=== PATIENT | female | born 1945 | race Caucasian/White ===

== ENCOUNTER → 2016-10-26 | Outpatient (CLI) | payer OTHER ==
[2016-10-26 11:08] LABS: HEMATOCRIT 43.7 % (37.0-47.0); HEMOGLOBIN 14.3 g/dL (12.0-16.0); MEAN CORPUSCULAR HEMOGLOBIN 31.1 PG (27-31); MEAN CORPUSCULAR HGB CONC 32.7 g/dL (33-37); MEAN PLATELET VOLUME 10.8 FL (7.4-12.2); RDW COEFFICIENT OF VARIATION 12.9 % (11.5-14.5); RED BLOOD COUNT 4.6 10^6/uL (4.20-5.40); WHITE BLOOD COUNT 6.21 10^3/uL (4.8-10.8)
[2016-10-26 11:43] LABS: BLOOD UREA NITROGEN 15 mg/dL (7-22); CALCIUM 9.5 mg/dL (8.7-10.7); CHLORIDE 103 meq/L (98-112); CREATININE 0.6 mg/dL (0.50-1.20); EST GLOMERULAR FILTRATION > 60 (>60 ml/min/1.73m(2)); GLUCOSE 83 mg/dL (78-110); HDL CHOLESTEROL 60 mg/dL (40-150); POTASSIUM 3.7 meq/L (3.8-5.2); SODIUM 143 meq/L (135-145); TRIGLYCERIDES 131 mg/dL (44-200)
[2016-10-27 21:20] LABS: RHEUMATOID FACTOR <15 IU/mL (<15)
[2016-10-27 21:21] LABS: ANTINUCLEAR ANTIBODY 2.6 U (()); CYCLIC CITRULLINATED PEPTIDEAB <15.6 U (())
== END ==
LOC: LAB 10:44
PROVIDERS: ATTEND Obstetrics & Gynecology Gynecology
DX: M06.89 Other specified rheumatoid arthritis, multiple sites (principal)
CPT/HCPCS: 80048; 80061; 85027; 85652; 86038; 86200; 86431

== ENCOUNTER → 2016-11-11 | Outpatient (CLI) | payer OTHER ==
[2016-11-11 13:41] LABS: BASOPHILS # (AUTO) 0.04 10*3/UL; BASOPHILS % (AUTO) 0.5 % (0-1); EOSINOPHILS % (AUTO) 0.6 % (0-8); HEMATOCRIT 42.1 % (37.0-47.0); HEMOGLOBIN 13.9 g/dL (12.0-16.0); IMM GRAN % (AUTO) 0.2 % (0-5); IMM GRAN# (AUTO) 0.02 10*3/UL; LYMPHOCYTES # (AUTO) 1.65 10*3/uL; LYMPHOCYTES % (AUTO) 19.9 % (10-50); MEAN PLATELET VOLUME 10.5 FL (7.4-12.2); MONOCYTES # (AUTO) 0.44 10*3/UL (0.3-0.8); MONOCYTES % (AUTO) 5.3 % (5-15); NEUTROPHILS % (AUTO) 73.5 % (50-80); RDW COEFFICIENT OF VARIATION 13.2 % (11.5-14.5); RED BLOOD COUNT 4.35 10^6/uL (4.20-5.40)
[2016-11-11 13:44] LABS: BILIRUBIN,URINE NEGATIVE (NEG); CLARITY,URINE CLEAR (CLEAR); GLUCOSE, URINE (UA) NEGATIVE (NEG); LEUKOCYTE ESTERASE ,URINE NEGATIVE (NEG); NITRATE,URINE NEGATIVE (NEG); OCCULT BLOOD,URINE NEGATIVE (NEG); PH,URINE 5.5 (5.0-8.5); PROTEIN,URINE NEGATIVE (NEG); UROBILINOGEN,URINE 0.2 EU/dL (0.2)
[2016-11-11 13:47] LABS: PLATELET MORPHOLOGY COMMENT NORMAL MORPHOLOGY (NORM); URINE SAMPLE TYPE CLEAN CATCH URINE
[2016-11-11 14:06] LABS: ASPARTATE AMINO TRANSFERASE 28 IU/L (8-39); BILIRUBIN,TOTAL 0.7 mg/dL (0.3-1.2); BLOOD UREA NITROGEN 20 mg/dL (7-22); CALCIUM 9.7 mg/dL (8.7-10.7); CHLORIDE 104 meq/L (98-112); CREATININE 0.8 mg/dL (0.50-1.20); EST GLOMERULAR FILTRATION > 60 (>60 ml/min/1.73m(2)); GLUCOSE 138 mg/dL (78-110); POTASSIUM 3.5 meq/L (3.8-5.2); SODIUM 144 meq/L (135-145); TOTAL PROTEIN 7.3 g/dL (6.1-8.0)
--- NOTE | 2016-11-11 15:23 | DI ---
LUMBAR SPINE SERIES, 11/11/2016 1:32 PM: Clinical History: Low back pain. Previous Exam: 07/15/2010. 3 routine upright views are submitted. The vertebral bodies are of normal height and size. There is m ild L4-5 and severe L5-S1 disc space narrowing. Posterior alignment is normal. The pedicles are diallo l. 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 Both SI joints are normal. Reading: Disc space narrowing at L4-5 and L5-S1 with degenerative arthritic changes bilaterally between L3-4 a nd L5-S1.
== END ==
LOC: LAB 13:22
PROVIDERS: ATTEND Nurse Practitioner Family
DX: R10.84 Generalized abdominal pain (principal); M54.5 Low back pain; M48.07 Spinal stenosis, lumbosacral region; M47.817 Spondylosis without myelopathy or radiculopathy, lumbosacral region
CPT/HCPCS: 36415; 72100; 80053; 81003; 85025

== ENCOUNTER 2016-11-25 16:20 | Emergency (ER) | payer OTHER ==
[2016-11-25 16:54] VITALS: RESP 20; TEMP 98.4
--- NOTE | 2016-11-25 17:32 | DI ---
HISTORY: Status post trauma. FINDINGS: There is no evidence of an acute fracture involving the component bones of the knee. A sm all joint effusion is demonstrated. There is question of a contusion versus chondromalacia of the la teral facet of the patella. IMPRESSION: 1. Small joint effusion. 2. Questionable contusion versus chondromalacia of the lateral patellar facet.
--- NOTE | 2016-11-25 17:33 | DI ---
HISTORY: Status post trauma. FINDINGS: There is no evidence of an acute fracture involving the component bones of the knee. A albino int effusion is not appreciated. There is no dislocation apparent. No radiopaque foreign bodies are identified. IMPRESSION: 1. No acute osseous abnormalities.
--- NOTE | 2016-11-26 02:41 | PDOC ---
Lower Extremity Injury HPI - General Chief Complaint: Lower Extremity Problem/Injury Stated Complaint: fall, knee pain bilaterally Date Seen by Provider: 11/25/16 Time Seen by Provider: 16:30 Source: POSITIVE: Patient Exam Limitations: POSITIVE: No limitations Nurse's Notes Reviewed & Considered: Yes - History of Present Illness Initial Comments: The patient is a 71-year-old female. Patient states she was descending some steps around 8 AM this morning. She stumbled and fell forward, striking both knees. She was able to get up on her own and has been ambulating since. She complains of some pain and a contusion just below her right patella and she also complains of some pain over the anteromedial and posterior aspect of the left knee. No paresthesia. No sensory or motor symptoms. No gross joint effusions. 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) Severity: Moderate Quality: REPORTS: "Pain" Location at Time of Onset: REPORTS: Home Context of Injury: REPORTS: Fall, Twist, Direct Blow Location of Injury: REPORTS: Knee (R), Knee (L) Modifying Factors: improves with: Movement, Other (Direct palpation) Associated Symptoms: DENIES: Unable to Bear Weight, Snapping, Popping Sensation , Became Dizzy, Fainted, Seizure, Other Any Prior Injuries Related to Current Complaint?: No - Patient Home Medications Home Medications: Home Medications Aspirin [Aspir 81] 81 mg PO DAILY 05/25/12 Simvastatin 20 mg ORAL QHS #45 tab 01/18/13 Omeprazole [Prilosec] 20 mg PO DAILY 08/11/14 ALPRAZolam Tab [Xanax Tab] 0.5 mg PO BID PRN 11/25/16 Celecoxib [Celebrex] 200 mg PO 11/25/16 Cholecalciferol (Vitamin D3) [Vitamin D-400] 400 unit PO DAILY 11/25/16 Cyclobenzaprine HCl [Flexeril] 10 mg PO BID 11/25/16 FLUoxetine HCl [PROzac] 20 mg PO DAILY 11/25/16 Levothyroxine Sodium [Synthroid] 100 mcg PO DAILY 11/25/16 Lisinopril 20 mg PO DAILY 11/25/16 Potassium Otc 595 mg PO DAILY 11/25/16 - Patient Allergies Allergies/Adverse Reactions: Allergies Allergy/AdvReac Type Severity Reaction Status Date / Time No Known Allergies Allergy Verified 11/25/16 16:32 Past Medical History - heen HEENT History: Cataracts, Dentures/Partials Cardiovascular History: Hypertension, Hyperlipidemia Additional Cardiovasular History: ABLATION 11/2009 Respiratory History: Emphysema, Pleurisy Gastrointestinal History: GERD, Hiatal Hernia Genitourinary History: Denies History Endocrine History: Hypothyroidism Musculoskeletal History: Back Pain Prosthesis or Implant: No Additional Musculoskeletal History: RIGHT ARM RECONSTRUCTION. Low back pain Neurological History: Denies History Blood Disorders: Denies History Psychiatric History: Anxiety Disorders History of Sexually Transmitted Diseases: No Cancer History: Skin Cancer Treatment / Date(s) of Treatment: LEFT LOWER LEG/EXCISION In Past Year Been Physically Harmed or Verbally Threatened: No History of MDRO: No History of Other Communicable Diseases: No Tobacco Use: Never Smoker Alcohol Use: None Substance Use Type: None Previous Surgical History: Yes Type / Date of Surgery: CATARACT/APPY/BRACHIAL ARTERY REPAIR, ABLATION Anesthesia Reactions: No Malignant Hyperthermia: No Significant Family History: Heart disease, Cancer Past Medical History Reviewed: Reviewed - No Changes ROS - Limitations ROS Limitations: No Limitations Constitution: REPORTS: Denies Symptoms Cardiovascular: REPORTS: Denies Cardiac Symptoms Respiratory: REPORTS: Denies Resp Symptoms Neurological: REPORTS: Denies Neuro Symptoms Gastrointestinal: REPORTS: Denies GI Symptoms Endocrine: REPORTS: Denies Symptoms Musculoskeletal: REPORTS: Joint Pain (Right and left knees; see diagram and above), Recent Injury (As above) Genitourinary: REPORTS: Denies Symptoms Eyes: REPORTS: Denies Symptoms ENT: REPORTS: Denies Symptoms Skin: REPORTS: Denies Skin Symptoms Lympathic: REPORTS: Denies Lympathic Symptoms Immunologic: POSITIVE: Denies Symptoms Psychiatric: POSITIVE: Denies Psych Symptoms Lower Ext Complaint Exam - General Appearance General Appearance: POSITIVE: Alert, Cooperative, No Acute Distress Reflexes: Patellar (R): 2+, Patellar (L): 2+ - Extremities Lower Extremity: POSITIVE: Normal ROM, Normal Color, Normal Temperature, Skin Intact, No Joint Swelling, No Evidence of Ischemia, Stable, Soft Tissue Tenderness (Contusion and some swelling just below the right patella), Bony Tenderness (Anterior aspect of right knee and anteromedial and posterior aspect of left knee), See Diagram. NEGATIVE: Swelling, Ecchymosis, Erythema, Deformity , Pulse Deficit, Limited ROM, Laxity of Ligaments, Joint Effusion, Hip Pain on Leg Movement Lower Extremity Ligament: POSITIVE: Pain on Posterior Drawer (Left), Pain on Medial Stress (Left). NEGATIVE: Pain on Anterior Drawer, Laxity on Anterior Drawer, Laxity w/Posterior Drawer, Pain on Lateral Stress, Laxity on Medial Stress, Laxity on Lateral Stress, Other Gait: POSITIVE: Antalgic Gait (Mildly antalgic) Neurovascular/Tendon: POSITIVE: Sensation Normal, Motor Normal, No Vascular Compromise Skin: POSITIVE: Warm, Dry - Neck / Back Neck/Back: POSITIVE: Normal Inspection, Non-Tender, Painless ROM - Respiratory / CVS Respiratory / CVS: POSITIVE: Chest Non Tender, No Ecchymosis, Breath Sounds Normal, No Respiratory Distress, Heart Sounds Normal, Regular Rate/Rhythm Peripheral Pulses: Radial (R): 2+, Radial (L): 2+, Dorsalis-pedis (R): 2+, Dorsalis-pedis (L): 2+ Images - Lower Extremities Lower Extremities: 1 - Contusions; discomfort on palpation 2 - Discomfort on palpation 3 - Discomfort on palpation Procedures - Splinting Time Splint Applied: 16:55 Location: knee immobilizer, left leg Pre-Proc Neuro Vasc Exam: Normal Splint Type: Knee Immobilizer, Crutches Splint Form: Long Extremity (Left knee immobilizer) Applied By:: Nurse Post-Proc Neuro Vasc Exam: Normal Lower Ext Complaint Progress - Results Reviewed by me Xrays/CTs/US Reviewed by me: Yes Discussed with Radiologist: Yes Radiology Findings: No fractures, no dislocations, no effusions - Patient's Progress Pain Medication Addressed: POSITIVE: Yes (Recommended Advil or Tylenol) School/Work Release Addressed: POSITIVE: Yes (No weight bearing on left leg for 7-10 days; see discharge instructions.) Re-Examine Time:: 17:10 Re-Examine Comment: Patient given knee immobilizer to left leg and crutches. Status: POSITIVE: Improved, Re-Examined - Consult Counseled: POSITIVE: Patient, RE: Radiology Results, RE: DX, RE: Need for F/U Patient Care Time - Estimated PCT Patient Care Time (In Minutes): 23 Vital Signs - VS Reviewed Vital Signs Reviewed: Yes Discharge Clinical Impression: Knee strain, Contusion Discharge Disposition: Discharged to Home Condition: Fair Patient Instructions Given at Discharge: Knee Sprain (ED), Contusion in Adults (ED), Knee Immobilizer (ED) Additional Instructions: I believe you have a sprain to your left knee, probably of the hamstring ligaments. He also have a contusion below the right knee. Please wear knee immobilizer and use crutches and bear no weight on the left leg for 7-10 days. If you're still having pain at the end of that time, please follow-up in the orthopedic clinic. Advil or Tylenol for pain. Cool compresses. Return here anytime if condition worsens in any way whatsoever. Follow-up with your primary care provider or orthopedist. Follow Up With: NIDA GRIFFITHS [Primary Care Provider] - (Instructions as above. Return here anytime if condition worsens in any way.)
== END 2016-11-25 17:36 | disposition home or self-care (01) ==
LOC: ER 16:20
DX: S83.91XA Sprain of unspecified site of right knee, initial encounter (principal); S80.01XA Contusion of right knee, initial encounter; M25.562 Pain in left knee; W10.8XXA Fall (on) (from) other stairs and steps, initial encounter
CPT/HCPCS: 73562; 99282

== ENCOUNTER → 2017-01-31 | Outpatient (CLI) | payer OTHER ==
[2017-01-31 10:38] LABS: FREE T4 (FREE THYROXINE) 1.5 ng/dL (0.93-1.71)
== END ==
LOC: LAB 08:49
PROVIDERS: ATTEND Obstetrics & Gynecology Gynecology
DX: E03.9 Hypothyroidism, unspecified (principal)
CPT/HCPCS: 36415; 84439; 84443

== ENCOUNTER → 2017-02-01 | Outpatient (CLI) | payer OTHER ==
--- NOTE | 2017-02-01 09:06 | DI ---
GALLBLADDER AND LIVER ULTRASOUND, 02/01/2017 7:50 AM: Clinical History: Hepatic cysts noted on CT scan of 12/11/2015. Previous Exam: Complete abdominal ultrasound, 06/21/2014; multiple CT scans of the abdomen without and with IV contrast from 06/20/2014; 08/04/2014; 05/15/2015, and 12/11/2015. Technique: Scans are performed through the right upper quadrant in multiple projections. The patient was rolled from side to side and the gallbladder was balloted with the probe to facilitate visualizat ion of small gallstones. The gallbladder is well distended and has a normal wall thickness. There are no gallstones. The commo n bile duct measures 4 mm area The pancreas is visualized from the head to the body and is normal. Th e liver has increased echogenicity with decreased through transmission consistent with fatty infiltra tion. The liver length is 15.1 cm. In the anterior aspect of the right lower liver is the previously identified cyst. This cyst measures approximately 13 mm in diameter and has not changed from the prev ious studies. No additional cysts are visualized although some smaller lesions were seen on the CT sc an. The right kidney, IVC, and aorta are normal. Readin. There is fatty infiltration of the liver. There is a cyst in the anterior margin of the right lob e of the liver that measures roughly 13 mm in diameter. It has not changed from the previous CT scans and prior ultrasound exam. 2. The gallbladder, right kidney, pancreas, IVC, and aorta are normal.
== END ==
LOC: US 07:47
PROVIDERS: ATTEND Internal Medicine Gastroenterology
DX: R93.3 Abnormal findings on diagnostic imaging of other parts of digestive tract (principal); K76.0 Fatty (change of) liver, not elsewhere classified
CPT/HCPCS: 76705